=== PATIENT | female | born 1940 | race Caucasian/White ===

== ENCOUNTER 2017-11-09 11:17 | Outpatient (CLI) | payer MEDICARE ==
[2017-11-09 11:45] LABS: Hemoglobin 12.7 gm/dl (10.1-14.3); Mean Corpuscular HGB Conc 34 % (30-34); Mean Corpuscular Hemoglobin 31 pg (28-32); Mean Corpuscular Volume 93 fl (79-97); Platelet Count 281 K/mm3 (140-440); Red Blood Count 4.09 M/mm3 (3.65-5.03); Red Cell Distribution Width 13.4 % (13.2-15.2)
[2017-11-09 12:08] LABS: Alanine Aminotransferase 8 units/L (7-56); Albumin 3.5 g/dL (3.9-5); BUN/Creatinine Ratio 30; Blood Urea Nitrogen 15 mg/dL (7-17); Calcium 9.3 mg/dL (8.4-10.2); Hemolysis Index 3
[2017-11-09 12:31] LABS: Erythrocyte Sedimentation Rate 32 mm/Hr (0-20)
== END 2017-11-09 11:18 | disposition home or self-care (01) ==
LOC: LAB 11:17
PROVIDERS: ATTEND Specialist
DX: G50.0 Trigeminal neuralgia (principal); G31.84 Mild cognitive impairment of uncertain or unknown etiology; M31.6 Other giant cell arteritis
CPT/HCPCS: 36415; 80053; 82164; 82306; 82607; 83921; 84443; 85027; 85652; 86038; 86225; 86592; 86618